=== PATIENT | male | born 1975 | race Caucasian/White ===

== ENCOUNTER 2019-07-30 22:17 | Emergency (ER) | payer MEDICARE ==
[2019-07-30 22:43] LABS: #Basophils 0.1 thou/uL (0.0-0.2); #Eosinphils 0.2 thou/uL (0.0-0.7); #Neutrophils 6.1 thou/uL (1.40-6.50); %Basophils 0.8 % (0.0-1.0); %Eosinophils 2.1 % (0.0-10.0); %Lymphocytes 20.9 % (21.0-51.0); %Monocytes 10.8 % (0.0-10.0); %Neutrophils 65.4 % (42.0-75.0); Hemoglobin 16.4 g/dL (14.0-18.0); Mean Corpuscular HGB CONC 34.1 g/dL (32.0-36.0); Mean Corpuscular Hemoglobin 29.6 pg (27.0-31.0); Mean Platelet Volume 7.9 fL (7.4-10.4); Platelet Count 164 thou/uL (130-400); RBC Distribution Width 11.3 % (11.5-14.5); Red Blood Cell (RBC) Count 5.55 mill/uL (4.70-6.10); White Blood Cell (WBC) Count 9.4 thou/uL (4.8-10.8)
[2019-07-30 22:55] LABS: ALT (SGPT) 39 U/L (8-55); AST (SGOT) 33 U/L (5-34); Albumin 4.3 g/dL (3.5-5.0); Alkaline Phosphatase 61 U/L (40-110); Anion Gap 13 mmol/L (10-20); BUN (Urea Nitrogen) 14 mg/dL (8.9-20.6); Bilirubin, Total 0.4 mg/dL (0.2-1.2); Calc. Creatinine Clearance 0 mL/min (70-130); Calcium 9.5 mg/dL (7.8-10.44); Carbon Dioxide 25 mmol/L (22-29); Chloride 105 mmol/L (98-107); Estimated GFR-MDRD 57; Globulin 3.2 g/dL (2.4-3.5); Glucose 140 mg/dL (70-105); Protein, Total 7.5 g/dL (6.0-8.3); Sodium 139 mmol/L (136-145)
[2019-07-30] MEDS ORDERED: Meclizine HCl 25 MG TAB ONE (23:11)
[2019-07-30] MEDS ORDERED: Nitroglycerin 2% Ointment 1 INCH/1 GM Packet ONE (23:11)
[2019-07-30] MEDS ORDERED: Aspirin Chewable 81 MG TAB ONE ×2 (23:11→23:20)
[2019-07-31] LABS: Bilirubin Negative (Negative); Blood, Urine Negative (Negative); Clarity Clear (Clear); Glucose, Urine (Dipstick) Negative (Negative); Leukocyte Negative (Negative); Nitrite Negative (Negative); Protein, Urine (Dipstick) Negative (Neg-Trace); Urobilinogen 0.2 mg/dL (Less than 2)
[2019-07-31 00:14] LABS: Amphetamine Not Detected (NotDetected); Barbiturates Screen Not Detected (NotDetected); Benzodiazepine Screen Not Detected (NotDetected); Cocaine Metabolite Screen Not Detected (NotDetected); Medtox Control Line Valid? VALID (VALID); Methadone Not Detected (NotDetected); Methamphetamine Not Detected (NotDetected); Opiate Screen Not Detected (NotDetected); Oxycodone Screen Not Detected (NotDetected); Phencyclidine (PCP) Not Detected (NotDetected); THC/Cannabinoid Screen Not Detected (NotDetected); Tricyclic Screen Not Detected (NotDetected)
--- NOTE | 2019-07-31 07:07 | RAD ---
PORTABLE CHEST: Date: 07/30/2019 An AP portable film at 2234 hours is compared with a 07/04/04 study. The heart is normal in size and the lungs are clear. No infiltrate or effusion seen. No vascular any estion or edema. Trachea is midline. IMPRESSION: No acute thoracic findings. POS: HOME
== END 2019-07-30 23:57 | disposition short-term general hospital (02) ==
LOC: BURERS 22:17
DX: I10 Essential (primary) hypertension (principal); R00.1 Bradycardia, unspecified; Z79.891 Long term (current) use of opiate analgesic; Z79.899 Other long term (current) drug therapy
CPT/HCPCS: 71045; 80053; 80164; 80306; 81003; 84443; 84484; 85025; 93005; 94760; J8597

== ENCOUNTER 2021-05-09 13:08 | Emergency (ER) | payer MEDICARE ==
[2021-05-10 01:38] LABS: SARS-CoV-2 PCR by NAA Not Detected (NotDetected)
== END 2021-05-09 13:50 | disposition home or self-care (01) ==
LOC: BURERS 13:08
DX: R05.9 Cough, unspecified (principal); R11.2 Nausea with vomiting, unspecified; R68.83 Chills (without fever); R53.81 Other malaise; J34.89 Other specified disorders of nose and nasal sinuses; R59.0 Localized enlarged lymph nodes; I10 Essential (primary) hypertension; G35 Multiple sclerosis; Z20.822 Contact with and (suspected) exposure to COVID-19
CPT/HCPCS: 99283; U0003; U0005